=== PATIENT | female | born 1955 | race Caucasian/White ===

== ENCOUNTER 2017-06-03 11:20 | Emergency (ER) | payer OTHER ==
[~2017-06-03] VITALS: Ht 167.6 cm; Wt 41.4 kg
[2017-06-03] MEDS ORDERED: IOHEXOL 350 MG/ML 10 ML VIAL (for RAD DIAG) IVCONTRAST ONE (11:21)
[2017-06-03 11:22] VITALS: BP 104/60; PULSE 84; RESP 18; TEMP 97.7; O2SAT 100
--- NOTE | 2017-06-03 11:53 | PD ---
HPI Chief Complaint: Respiratory Symptoms Time Seen by Provider: 11:41 Travel History International Travel<30 days: No Contact w/Intl Traveler<30days: No Traveled to known affect area: No History of Present Illness HPI Patient 62-year-old female presents emergency department for evaluation of shortness of breath. Patient states she has history of COPD, recently relocated to the area but was told that outside hospital that she had lung cancer diagnosed by imaging studies. She's never had a biopsy before, she states that she is allergic to chemotherapy and cannot take it because she's had it in the past. She could not really elaborate onto her prior diagnoses or the reason why she had chemotherapy in the past. States shortness of breath been going on for the past few days, no long trips recently she relocated to this area several months ago. Denies any chest pain abdominal pain nausea vomiting fever cough congestion. She's been taking nebulizers at home with minimal relief. Symptoms moderate, context above, associated signs symptoms as above, gradually worsening. PFSH Past Medical History Narrative Medical COPD, asthma, Respiratory: Yes (COPD, lung CA) Past Surgical History Narrative Surgical Tonsillectomy Social History Alcohol Use: Yes Tobacco Use: Yes Allergies-Medications (Allergen,Severity, Reaction): Coded Allergies: Penicillins (Verified Allergy, Severe, hives, 06/03/17) Influenza Virus Vaccines (Verified Adverse Reaction, Unknown, vomiting, ) pt report vomiting blood aspirin (Verified Adverse Reaction, Unknown, nauseas/vomiting, 06/03/17) Reported Meds & Prescriptions Reported Meds & Active Scripts Active Proair Hfa 8.5 GM Inh (Albuterol Sulfate) 90 Mcg/Act Aer 1 Puff INH Q4H PRN 108 mcg/actuation Prednisone 20 Mg Tab 60 Mg PO DAILY 5 Days Review of Systems Except as stated in HPI: all other systems reviewed are Neg Physical Exam Narrative GENERAL: Well-developed well-nourished, mildly tachypneic, thin. SKIN: Focused skin assessment warm/dry. HEAD: Atraumatic. Normocephalic. EYES: Pupils equal and round. No scleral icterus. No injection or drainage. ENT: No nasal bleeding or discharge. Mucous membranes pink and moist. NECK: Trachea midline. No JVD. CARDIOVASCULAR: Regular rate and rhythm. No murmur appreciated. RESPIRATORY: Mildly tachypneic, no accessory muscle use.. Clear to auscultation. Breath sounds equal bilaterally. GASTROINTESTINAL: Abdomen soft, non-tender, nondistended. Hepatic and splenic margins not palpable. MUSCULOSKELETAL: No obvious deformities. No clubbing. No cyanosis. No edema. NEUROLOGICAL: Awake and alert. No obvious cranial nerve deficits. Motor grossly within normal limits. Normal speech. PSYCHIATRIC: Appropriate mood and affect; insight and judgment normal. Data Data Last Documented VS Vital Signs Date Time Temp Pulse Resp B/P (MAP) Pulse Ox O2 Delivery O2 Flow Rate FiO2 06/03/17 16:40 97.8 67 18 120/81 (94) 100 06/03/17 14:19 Room Air Orders Orders Ckmb (Isoenzyme) Profile (06/03/17 11:58) Complete Blood Count With Diff (06/03/17 11:58) Comprehensive Metabolic Panel (06/03/17 11:58) Magnesium (Mg) (06/03/17 11:58) Prothrombin Time / Inr (Pt) (06/03/17 11:58) Act Partial Throm Time (Ptt) (06/03/17 11:58) Troponin I (06/03/17 11:58) Chest, Single Ap (06/03/17 11:58) Ecg Monitoring (06/03/17 11:58) Iv Access Insert/Monitor (06/03/17 11:58) Oximetry (06/03/17 11:58) Oxygen Administration (06/03/17 11:58) Ct Pulmonary Angiogram (06/03/17 11:58) Albuterol-Ipratropium Neb (Duoneb Neb) (06/03/17 12:45) Iohexol 350 Inj (Omnipaque 350 Inj) (06/03/17 11:21) Ed Discharge Order (06/03/17 16:18) Labs Laboratory Tests Test 06/03/17 11:10 White Blood Count 5.2 TH/MM3 Red Blood Count 3.86 MIL/MM3 Hemoglobin 12.5 GM/DL Hematocrit 35.8 % Mean Corpuscular Volume 92.8 FL Mean Corpuscular Hemoglobin 32.2 PG Mean Corpuscular Hemoglobin Concent 34.7 % Red Cell Distribution Width 12.7 % Platelet Count 181 TH/MM3 Mean Platelet Volume 8.7 FL Neutrophils (%) (Auto) 38.4 % Lymphocytes (%) (Auto) 51.6 % Monocytes (%) (Auto) 8.0 % Eosinophils (%) (Auto) 1.3 % Basophils (%) (Auto) 0.7 % Neutrophils # (Auto) 2.0 TH/MM3 Lymphocytes # (Auto) 2.7 TH/MM3 Monocytes # (Auto) 0.4 TH/MM3 Eosinophils # (Auto) 0.1 TH/MM3 Basophils # (Auto) 0.0 TH/MM3 CBC Comment AUTO DIFF Differential Comment AUTO DIFF CONFIRMED Prothrombin Time 10.6 SEC Prothromb Time International Ratio 1.0 RATIO Activated Partial Thromboplast Time 25.3 SEC Blood Urea Nitrogen 8 MG/DL Creatinine 0.85 MG/DL Random Glucose 72 MG/DL Total Protein 6.5 GM/DL Albumin 3.3 GM/DL Calcium Level 8.4 MG/DL Magnesium Level 2.1 MG/DL Alkaline Phosphatase 74 U/L Aspartate Amino Transf (AST/SGOT) 9 U/L Alanine Aminotransferase (ALT/SGPT) 17 U/L Total Bilirubin 0.6 MG/DL Sodium Level 141 MEQ/L Potassium Level 3.8 MEQ/L Chloride Level 106 MEQ/L Carbon Dioxide Level 26.0 MEQ/L Anion Gap 9 MEQ/L Estimat Glomerular Filtration Rate 68 ML/MIN Total Creatine Kinase 94 U/L Troponin I LESS THAN 0.02 NG/ML MDM Medical Decision Making Medical Screen Exam Complete: Yes Emergency Medical Condition: Yes Differential Diagnosis PE, COPD, pneumonia, pleural effusion. Narrative Course Patient roomed emergency department, given DuoNeb, feeling better, chest CT performed shows: Last 24 hours Impressions Chest X-Ray 06/03/17 1165 Signed Impressions: Service Date/Time: Saturday, June 03, 2017 12:01 - CONCLUSION: No acute disease. Yaron Riddle MD CT Angiography 06/03/17 1154 Signed Impressions: Service Date/Time: Saturday, June 03, 2017 13:27 - CONCLUSION: 1. No evidence of pulmonary embolism. 2. Underlying emphysema and old granulomatous change. Loi Mukherjee MD Doing well saturating well, no indication for further workup or inpatient management, discussed [facility] care physician, discussed at length that she does have some pulmonary nodules and would do well to have them biopsied in the future. Recommended obtaining her outside records so they can be reviewed by primary care physician for further management of possible lung cancer. Generalized understanding and agreement all the above, she stable for discharge. Diagnosis Primary Impression: COPD exacerbation Additional Impression: Pulmonary nodule Referrals: [facility] Med/Other Pt SpecificInfo: Prescription(s) given Scripts Albuterol 8.5 GM Inh (Proair Hfa 8.5 GM Inh) 90 Mcg/Act Aer 1 PUFF INH Q4H Y for SHORTNESS OF BREATH, #1 INHALER 1 Refill 108 mcg/actuation Prov: Edgar Pepper MD 06/03/17 Prednisone (Prednisone) 20 Mg Tab 60 MG PO DAILY for 5 Days, #15 TAB 0 Refills Prov: Edgar Pepper MD 06/03/17 Disposition: 01 DISCHARGE HOME Condition: Stable Edgar Pepper MD Jun 03, 2017 11:53
[2017-06-03 12:10] VITALS: RESP 20; O2SAT 100
[2017-06-03 12:27] VITALS: BP 108/66; PULSE 58; RESP 20; O2SAT 100
--- NOTE | 2017-06-03 12:37 | RADRPT ---
EXAM DATE/TIME: 06/03/2017 12:01 [facility] COMPARISON: No previous studies available for comparison. INDICATIONS : Chest pains with shortness of breath x2 days. MEDICAL HISTORY : None. SURGICAL HISTORY : None. ENCOUNTER: Initial ACUITY: 2 days PAIN SCORE: 8/10 LOCATION: Bilateral chest FINDINGS: The heart size is normal. The lungs appear somewhat hyperinflated. There is a calcified granuloma at the lateral right base. Lungs are free of focal consolidation. There are symmetric nodule densities p rojecting over the bases bilaterally almost certainly representing nipple shadows. CONCLUSION: No acute disease. Yaron Riddle MD on June 03, 2017 at 12:33 Board Certified Radiologist. This report was verified electronically.
[2017-06-03 12:43] LABS: BASOPHIL % 0.7 % (0.0-2.0); EOSINOPHIL # 0.1 TH/MM3 (0-0.4); EOSINOPHIL % 1.3 % (0.0-4.0); HEMATOCRIT 35.8 % (35.0-46.0); HEMOGLOBIN 12.5 GM/DL (11.6-15.3); LYMPH % 51.6 % (9.0-44.0); LYMPHOCYTE # 2.7 TH/MM3 (1.0-4.8); MEAN CELL VOLUME 92.8 FL (80.0-100.0); MEAN CORPUSCULAR HEMOGLOBIN 32.2 PG (27.0-34.0); MEAN CORPUSCULAR HGB CONC 34.7 % (32.0-36.0); MEAN PLATELET VOLUME 8.7 FL (7.0-11.0); MONOCYTE # 0.4 TH/MM3 (0-0.9); NEUT % 38.4 % (16.0-70.0); PLATELET COUNT 181 TH/MM3 (150-450); RED BLOOD COUNT 3.86 MIL/MM3 (4.00-5.30); RED CELL DISTRIBUTION WIDTH 12.7 % (11.6-17.2); WHITE BLOOD COUNT 5.2 TH/MM3 (4.0-11.0)
[2017-06-03] MEDS ORDERED: RESP: ALBUTEROL 2.5 MG/IPRATROPIUM 0.5 MG NEB (SCH) NEB ONE (12:45)
[2017-06-03 12:58] LABS: PROTHROMBIN TIME - PATIENT 10.6 SEC (9.8-11.6)
[2017-06-03 13:03] LABS: ALBUMIN 3.3 GM/DL (3.4-5.0); AST (GOT) 9 U/L (15-37); BLOOD UREA NITROGEN 8 MG/DL (7-18); CALCIUM 8.4 MG/DL (8.5-10.1); CHLORIDE 106 MEQ/L (98-107); CREATININE 0.85 MG/DL (0.50-1.00); GLOMERULAR FILTRATION RATE 68 ML/MIN (>89); GLUCOSE,RANDOM 72 MG/DL (74-106); MAGNESIUM 2.1 MG/DL (1.5-2.5); SODIUM (NA) 141 MEQ/L (136-145)
[2017-06-03 13:19] LABS: ALKALINE PHOSPHATASE 74 U/L (45-117); ALT (GPT) 17 U/L (10-53); TOTAL BILIRUBIN ADULT 0.6 MG/DL (0.2-1.0); TOTAL PROTEIN 6.5 GM/DL (6.4-8.2); TROPONIN I LESS THAN 0.02 NG/ML (0.02-0.05)
--- NOTE | 2017-06-03 13:47 | RADRPT ---
EXAM DATE/TIME: 06/03/2017 13:27 [facility] COMPARISON: CHEST SINGLE AP, June 03, 2017, 12:01. INDICATIONS : Shortness of breath for three days IV CONTRAST: 50 cc Omnipaque 350 (iohexol) IV RADIATION DOSE: 5.34 CTDIvol (mGy) MEDICAL HISTORY : Chronic obstructive pulmonary disease. Carcinoma, lung. SURGICAL HISTORY : None. ENCOUNTER: Initial ACUITY: 3 days PAIN SCALE: 8/10 LOCATION: chest TECHNIQUE: Volumetric scanning of the chest was performed using a pulmonary embolism protocol MIP images were re constructed. Using automated exposure control and adjustment of the mA and/or kV according to patien t size, radiation dose was kept as low as reasonably achievable to obtain optimal diagnostic quality images. DICOM format image data is available electronically for review and comparison. Follow-up recommendations for detected pulmonary nodules are based at a minimum on nodule size and pa tient risk factors according to Fleischner Society Guidelines. FINDINGS: PULMONARY ARTERIES: No filling defects are seen in the pulmonary arteries through the segmental level. A densely calcifie d granuloma is again noted in the right lower lobe. There are multiple additional small scattered [place] cified granulomas. There is hyperinflation and underlying emphysema. LUNGS: There is no consolidation or pneumothorax . No concerning pulmonary nodule is visualized. PLEURAE: There is no pleural thickening or pleural effusion. MEDIASTINUM: There is good visualization of the great vessels of the middle mediastinum. No evidence of mediastin al or hilar adenopathy/mass. MUSCULOSKELETAL: Within normal limits for patient age. MISCELLANEOUS: The visualized upper abdominal organs demonstrate no acute abnormality. CONCLUSION: 1. No evidence of pulmonary embolism. 2. Underlying emphysema and old granulomatous change. Loi Mukherjee MD on June 03, 2017 at 13:40 Board Certified Radiologist. This report was verified electronically.
[2017-06-03 14:19] VITALS: BP 125/75; PULSE 62; RESP 18; TEMP 98; O2SAT 100
[2017-06-03] MEDS ORDERED: PRED20 PO (16:20)
[2017-06-03] MEDS ORDERED: ALBUAER3 INH (16:20)
[2017-06-03 16:40] VITALS: BP 120/81; TEMP 97.8
== END 2017-06-03 16:40 | disposition home or self-care (01) ==
LOC: NEPE 11:20
DX: J44.1 Chronic obstructive pulmonary disease with (acute) exacerbation (principal); R91.1 Solitary pulmonary nodule; C34.90 Malignant neoplasm of unspecified part of unspecified bronchus or lung; Z88.0 Allergy status to penicillin; Z88.8 Allergy status to other drugs, medicaments and biological substances
CPT/HCPCS: 71045; 71275; 80053; 82550; 83735; 84484; 85025; 85610; 85730; 94664; 99285; Q9967

== ENCOUNTER 2017-06-09 16:59 | Observation (INO) | payer OTHER ==
[~2017-06-09] VITALS: Ht 167.6 cm; Wt 40.0 kg
[~2017-06-09 16:59] MED LIST: ALBUAER3 INH; PRED20 PO
[2017-06-09 17:06] VITALS: BP 110/65; PULSE 80; RESP 17; TEMP 98.3; O2SAT 99
--- NOTE | 2017-06-09 17:24 | PD ---
HPI Chief Complaint: Syncope/Near-Syncope Time Seen by Provider: 17:08 Travel History International Travel<30 days: No Contact w/Intl Traveler<30days: No Traveled to known affect area: No History of Present Illness HPI 62-year-old female with reported history of COPD presents via EMS for evaluation of syncopal event. Prior to arrival the patient reports that she was walking inside of her house when she felt lightheaded. She reports that she called out for her fianc but she then had a syncopal event and woke up on the ground. She reports that her fianc witnessed this and she was on the ground for approximately 1 minute. There is no seizure activity. She is currently complaining of some lightheadedness as well as nausea. She is also complaining of some sharp chest pain which is started a few seconds ago. Sharp centralized chest pain with no aggravating or relieving factors. Lightheadedness is moderate, no aggravating or relieving factors. She reports that she had similar lightheadedness yesterday for several minutes which resolved on its own. Denies any history of syncope in the past. Denies any abdominal pain, diarrhea or constipation. She reports that she has had a normal healthy appetite. She does not have a primary care physician. She was seen here in June 02 of this year and diagnosed with COPD exacerbation. She had a negative CT pulmonary angiogram at that time and reassuring lab work. She was discharged with prescriptions for prednisone and albuterol inhaler however she never filled them. No other complaints at this time. PFSH Past Medical History Asthma: Yes Cardiovascular Problems: Yes (chest pain hx) COPD: Yes Cerebrovascular Accident: Yes Diminished Hearing: No Respiratory: Yes (COPD) Influenza Vaccination: No ?: Not Menopausal: Yes : 1 Para: 1 Past Surgical History Abdominal Surgery: Yes Appendectomy: Yes Tonsillectomy: Yes Social History Alcohol Use: No Tobacco Use: Yes (2 PPD) Substance Use: No Allergies-Medications (Allergen,Severity, Reaction): Coded Allergies: Penicillins (Verified Allergy, Severe, hives, 06/09/17) Influenza Virus Vaccines (Verified Adverse Reaction, Unknown, vomiting, 06/09/17) pt report vomiting blood aspirin (Verified Adverse Reaction, Unknown, nauseas/vomiting, 06/09/17) Reported Meds & Prescriptions Reported Meds & Active Scripts Active Proair Hfa 8.5 GM Inh (Albuterol Sulfate) 90 Mcg/Act Aer 1 Puff INH Q4H PRN 108 mcg/actuation Prednisone 20 Mg Tab 60 Mg PO DAILY 5 Days Review of Systems Except as stated in HPI: all other systems reviewed are Neg Physical Exam Narrative GENERAL: Thin female who appears older than stated age in no acute distress. SKIN: Warm and dry. HEAD: Atraumatic. Normocephalic. EYES: Pupils equal and round. No scleral icterus. No injection or drainage. ENT: No nasal bleeding or discharge. Mucous membranes pink and moist. NECK: Trachea midline. No JVD. CARDIOVASCULAR: Regular rate and rhythm. No murmur appreciated. RESPIRATORY: No accessory muscle use. Clear to auscultation. Breath sounds equal bilaterally. GASTROINTESTINAL: Abdomen soft, non-tender, nondistended. Hepatic and splenic margins not palpable. MUSCULOSKELETAL: No obvious deformities. No clubbing. No cyanosis. No edema. NEUROLOGICAL: Awake and alert. No obvious cranial nerve deficits. Motor grossly within normal limits. Normal speech. PSYCHIATRIC: Appropriate mood and affect; insight and judgment normal. Data Data Last Documented VS Vital Signs Date Time Temp Pulse Resp B/P (MAP) Pulse Ox O2 Delivery O2 Flow Rate FiO2 06/09/17 19:05 61 17 100 Room Air 06/09/17 19:05 110/68 (82) 06/09/17 17:06 98.3 Orders Orders Electrocardiogram (06/09/17 17:19) Basic Metabolic Panel (Bmp) (06/09/17 17:19) Complete Blood Count With Diff (06/09/17 17:19) Magnesium (Mg) (06/09/17 17:19) Ckmb (Isoenzyme) Profile (06/09/17 17:19) Troponin I (06/09/17 17:19) Ct Brain W/O Iv Contrast(Rout) (06/09/17 17:19) Blood Glucose (06/09/17 17:19) Ecg Monitoring (06/09/17 17:19) Iv Access Insert/Monitor (06/09/17 17:19) Oximetry (06/09/17 17:19) Ondansetron Inj (Zofran Inj) (06/09/17 17:30) Sodium Chloride 0.9% Flush (Ns Flush) (06/09/17 17:30) Sodium Chlorid 0.9% 500 Ml Inj (Ns 500 M (06/09/17 17:30) Chest, Single Ap (06/09/17 ) CKMB (06/09/17 17:25) CKMB% (06/09/17 17:25) Potassium Chloride (Kcl) (06/09/17 18:30) Admit Order (Ed Use Only) (06/09/17 19:09) Labs Laboratory Tests Test 06/09/17 17:25 White Blood Count 5.7 TH/MM3 Red Blood Count 3.74 MIL/MM3 Hemoglobin 12.0 GM/DL Hematocrit 34.6 % Mean Corpuscular Volume 92.6 FL Mean Corpuscular Hemoglobin 32.0 PG Mean Corpuscular Hemoglobin Concent 34.6 % Red Cell Distribution Width 12.8 % Platelet Count 169 TH/MM3 Mean Platelet Volume 9.6 FL Neutrophils (%) (Auto) 55.1 % Lymphocytes (%) (Auto) 34.6 % Monocytes (%) (Auto) 9.1 % Eosinophils (%) (Auto) 0.6 % Basophils (%) (Auto) 0.6 % Neutrophils # (Auto) 3.2 TH/MM3 Lymphocytes # (Auto) 2.0 TH/MM3 Monocytes # (Auto) 0.5 TH/MM3 Eosinophils # (Auto) 0.0 TH/MM3 Basophils # (Auto) 0.0 TH/MM3 CBC Comment DIFF FINAL Differential Comment Blood Urea Nitrogen 12 MG/DL Creatinine 0.85 MG/DL Random Glucose 133 MG/DL Calcium Level 7.9 MG/DL Magnesium Level 1.8 MG/DL Sodium Level 137 MEQ/L Potassium Level 3.4 MEQ/L Chloride Level 105 MEQ/L Carbon Dioxide Level 23.8 MEQ/L Anion Gap 8 MEQ/L Estimat Glomerular Filtration Rate 68 ML/MIN Total Creatine Kinase 270 U/L Creatine Kinase MB 2.0 NG/ML Creatine Kinase MB % 0.7 % Troponin I LESS THAN 0.02 NG/ML MDM Medical Decision Making Medical Screen Exam Complete: Yes Emergency Medical Condition: Yes Medical Record Reviewed: Yes Differential Diagnosis Syncope, arrhythmia, structural heart disease, electrolyte abnormality, hypoglycemia, critical anemia, subarachnoid hemorrhage, acute coronary syndrome , aortic dissection, pulmonary embolism Narrative Course The patient was placed on ECG monitoring pulse oximetry. 12-lead EKG will be obtained. Plan is for lab work, chest x-ray, CT the brain. Reassuringly the patient had a negative CT pulmonary angiogram 6 days ago with no evidence of pulmonary embolism. CBC is unremarkable. CMP reveals a potassium 3.4, glucose 133, calcium 7.9, total CK 270, troponin negative, chest x-ray unremarkable. At this point in time the plan is to admit the patient for chest pain, syncope. She is agreeable. Diagnosis Primary Impression: Syncope Additional Impression: Chest pain Admitting Information Admitting Physician Requests: Dayton Christianson Jun 09, 2017 17:24
[2017-06-09] MEDS ORDERED: ONDANSETRON HCL 4 MG/2 ML VIAL IVP ONE (17:30)
[2017-06-09] MEDS ORDERED: SODIUM CHLORID 0.9% 500 ML INJ 500 ML IV ONE (17:30)
[2017-06-09] MEDS ORDERED: SODIUM CHLORIDE 0.9% FLUSH 10 ML FLUSH IVF PRN (17:30)
[2017-06-09 17:32] VITALS: O2SAT 98
[2017-06-09 17:43] LABS: AUTOMATED NEUTROPHIL # 3.2 TH/MM3 (1.8-7.7); BASOPHIL % 0.6 % (0.0-2.0); EOSINOPHIL % 0.6 % (0.0-4.0); HEMATOCRIT 34.6 % (35.0-46.0); LYMPH % 34.6 % (9.0-44.0); MEAN CELL VOLUME 92.6 FL (80.0-100.0); MEAN CORPUSCULAR HGB CONC 34.6 % (32.0-36.0); MEAN PLATELET VOLUME 9.6 FL (7.0-11.0); MONO % 9.1 % (0.0-8.0); MONOCYTE # 0.5 TH/MM3 (0-0.9); NEUT % 55.1 % (16.0-70.0); PLATELET COUNT 169 TH/MM3 (150-450); RED BLOOD COUNT 3.74 MIL/MM3 (4.00-5.30); RED CELL DISTRIBUTION WIDTH 12.8 % (11.6-17.2); WHITE BLOOD COUNT 5.7 TH/MM3 (4.0-11.0)
[2017-06-09 17:57] LABS: BICARBONATE 23.8 MEQ/L (21.0-32.0); BLOOD UREA NITROGEN 12 MG/DL (7-18); CALCIUM 7.9 MG/DL (8.5-10.1); CHLORIDE 105 MEQ/L (98-107); CREATININE 0.85 MG/DL (0.50-1.00); GLOMERULAR FILTRATION RATE 68 ML/MIN (>89); GLUCOSE,RANDOM 133 MG/DL (74-106); MAGNESIUM 1.8 MG/DL (1.5-2.5); SODIUM (NA) 137 MEQ/L (136-145)
[2017-06-09 18:00] LABS: TROPONIN I LESS THAN 0.02 NG/ML (0.02-0.05)
[2017-06-09] MEDS ORDERED: POTASSIUM CHLORIDE 20 MEQ CONTROLLED RELEASE TAB PO ONE (18:30)
--- NOTE | 2017-06-09 18:43 | RADRPT ---
EXAM DATE/TIME: 06/09/2017 18:21 [facility] COMPARISON: CT PULMONARY ANGIOGRAM, June 03, 2017, 13:27. CHEST SINGLE AP, June 03, 2017, 12:01. INDICATIONS : Chest Pain MEDICAL HISTORY : Chronic obstructive pulmonary disease. Carcinoma, lung. SURGICAL HISTORY : None. ENCOUNTER: Initial ACUITY: 1 day PAIN SCORE: 8/10 LOCATION: chest FINDINGS: The lungs are clear without infiltrate, nodule, or mass. There is no appreciable pleural effusion fo r technique. Heart and mediastinum are unremarkable. Evidence for prior granulomatous exposure with a calcified granuloma right lower lobe. CONCLUSION: No acute cardiopulmonary disease. Roxana Dodge MD on June 09, 2017 at 18:41 Board Certified Radiologist. This report was verified electronically.
[2017-06-09 19:05] VITALS: BP 110/68; PULSE 60; RESP 17; O2SAT 100
[2017-06-09] MEDS ORDERED: SENNOSIDES 8.6 MG TAB PO PRN (19:15)
[2017-06-09] MEDS ORDERED: RESP: ALBUTEROL 2.5 MG/IPRATROPIUM 0.5 MG NEB (PRN) NEB (19:15)
[2017-06-09] MEDS ORDERED: SODIUM CHLORIDE 0.9% FLUSH 10 ML FLUSH IV FLUSH PRN (19:15)
[2017-06-09] MEDS ORDERED: BISACODYL 10 MG SUPP RECTAL PRN (19:15)
[2017-06-09] MEDS ORDERED: ONDANSETRON HCL 4 MG/2 ML VIAL IVP PRN (19:15)
[2017-06-09] MEDS ORDERED: MAGNESIUM HYDROXIDE SUSP 30 ML CUP PO PRN (19:15)
[2017-06-09] MEDS ORDERED: ACETAMINOPHEN/HYDROcodone 325 MG/5 MG TAB PO PRN (19:15)
[2017-06-09] MEDS ORDERED: ACETAMINOPHEN 325 MG TAB PO PRN (19:15)
[2017-06-09] MEDS ORDERED: MORPHINE SULFATE 2 MG/ML INJ IV PUSH PRN (19:15)
[2017-06-09] MEDS ORDERED: LACTULOSE SYRUP 20 GM/30 ML CUP PO PRN (19:15)
--- NOTE | 2017-06-09 19:15 | PD ---
Physical Exam Narrative General: The patient is a well-developed well-nourished female, drinking Gatorade and having gram crackers on my arrival to the room. She reports feeling improved since her initial evaluation by [place]. Head and Neck exam: Head is normocephalic atraumatic. Cardiovascular: Regular rate and rhythm without murmurs, gallops, or rubs. Lungs: Clear to auscultation bilaterally. No wheezes, rhonchi, or rales. Abdomen: Soft, without tenderness to palpation in all 4 quadrants of the abdomen. No guarding, rebound, or rigidity. Normal bowel sounds are audible. No tenderness on palpation of McBurney's point. Extremities: No clubbing, cyanosis, or edema. 2+ pulses in all 4 extremities. No calf tenderness on palpation. Neurologic Exam: Grossly nonfocal. Skin Exam: No rash noted. Intact skin that is warm and dry. Data Data Last Documented VS Vital Signs Date Time Temp Pulse Resp B/P (MAP) Pulse Ox O2 Delivery O2 Flow Rate FiO2 06/09/17 19:05 61 17 100 Room Air 06/09/17 19:05 110/68 (82) 06/09/17 17:06 98.3 Orders Orders Electrocardiogram (06/09/17 17:19) Basic Metabolic Panel (Bmp) (06/09/17 17:19) Complete Blood Count With Diff (06/09/17 17:19) Magnesium (Mg) (06/09/17 17:19) Ckmb (Isoenzyme) Profile (06/09/17 17:19) Troponin I (06/09/17 17:19) Ct Brain W/O Iv Contrast(Rout) (06/09/17 17:19) Blood Glucose (06/09/17 17:19) Ecg Monitoring (06/09/17 17:19) Iv Access Insert/Monitor (06/09/17 17:19) Oximetry (06/09/17 17:19) Ondansetron Inj (Zofran Inj) (06/09/17 17:30) Sodium Chloride 0.9% Flush (Ns Flush) (06/09/17 17:30) Sodium Chlorid 0.9% 500 Ml Inj (Ns 500 M (06/09/17 17:30) Chest, Single Ap (06/09/17 ) CKMB (06/09/17 17:25) CKMB% (06/09/17 17:25) Potassium Chloride (Kcl) (06/09/17 18:30) Admit Order (Ed Use Only) (06/09/17 19:09) Labs Laboratory Tests Test 06/09/17 17:25 White Blood Count 5.7 TH/MM3 Red Blood Count 3.74 MIL/MM3 Hemoglobin 12.0 GM/DL Hematocrit 34.6 % Mean Corpuscular Volume 92.6 FL Mean Corpuscular Hemoglobin 32.0 PG Mean Corpuscular Hemoglobin Concent 34.6 % Red Cell Distribution Width 12.8 % Platelet Count 169 TH/MM3 Mean Platelet Volume 9.6 FL Neutrophils (%) (Auto) 55.1 % Lymphocytes (%) (Auto) 34.6 % Monocytes (%) (Auto) 9.1 % Eosinophils (%) (Auto) 0.6 % Basophils (%) (Auto) 0.6 % Neutrophils # (Auto) 3.2 TH/MM3 Lymphocytes # (Auto) 2.0 TH/MM3 Monocytes # (Auto) 0.5 TH/MM3 Eosinophils # (Auto) 0.0 TH/MM3 Basophils # (Auto) 0.0 TH/MM3 CBC Comment DIFF FINAL Differential Comment Blood Urea Nitrogen 12 MG/DL Creatinine 0.85 MG/DL Random Glucose 133 MG/DL Calcium Level 7.9 MG/DL Magnesium Level 1.8 MG/DL Sodium Level 137 MEQ/L Potassium Level 3.4 MEQ/L Chloride Level 105 MEQ/L Carbon Dioxide Level 23.8 MEQ/L Anion Gap 8 MEQ/L Estimat Glomerular Filtration Rate 68 ML/MIN Total Creatine Kinase 270 U/L Creatine Kinase MB 2.0 NG/ML Creatine Kinase MB % 0.7 % Troponin I LESS THAN 0.02 NG/ML [facility] Medical Record Reviewed: Yes Supervised Visit with JESSENIA: Yes Narrative Course I, Dr. Chávez, have reviewed the advance practice practitioner's documentation and am in agreement, met with the patient face to face, made the diagnosis, and the medical decision making was done by me. The patient was initially evaluated by [place]. Please see their complete history and physical. *My assessment and Findings: The patient presents with a history of syncopal event prior to arrival. During the course of the patients emergency department visit, the patients history, examination, and differential diagnosis were reviewed with the patient. The patient was placed on a cardiac cath tech with oximetry and frequent blood pressure monitoring. The patient had IV access obtained and blood work sent for analysis. The patient was initially provided normal saline a 500 mL bolus, Zofran 4 mg IV , potassium was supplemented by mouth. The patients laboratory studies were reviewed and remarkable for a white count of 5.7, hemoglobin 12, platelets 169 with 9.1 monocytes, basic metabolic profile is remarkable for potassium 3.4, GFR of 68, glucose 133, CPK 270, MB percent 0.7, troponin I less than 0.02 Radiology studies were reviewed and remarkable for a chest x-ray that shows no acute cardiopulmonary disease. CT scan of the brain shows no acute abnormality. The patient will be admitted to the hospital for a syncopal event The patients results were discussed with the patient, including the plan of care. I explained that further testing and/ or monitoring is indicated based on the patients history, examination, and/ or laboratory findings. Therefore, I recommended admission for additional evaluation. The patient expressed understanding and was agreeable with this plan. The patient was admitted to the hospital in stable condition and [facility] Diagnosis Primary Impression: Syncope Additional Impression: Chest pain Admitting Information Admitting Physician Requests: Observation Mariella Chávez MD Jun 09, 2017 19:15
--- NOTE | 2017-06-09 19:17 | RADRPT ---
EXAM DATE/TIME: 06/09/2017 17:59 [facility] COMPARISON: No previous studies available for comparison. INDICATIONS : Syncopal episode. RADIATION DOSE: 56.35CTDIvol (mGy) MEDICAL HISTORY : Cerebrovascular disease. Cardiovascular disease SURGICAL HISTORY : Appendectomy. ENCOUNTER: Initial ACUITY: 1 day PAIN SCALE: 5/10 LOCATION: cranial TECHNIQUE: Multiple contiguous axial images were obtained of the head. Using automated exposure control and adjustment of the mA and/or kV according to patient size, radiation dose was kept as low as reasonably achievable to obtain optimal diagnostic quality images. DICOM format image data is av ailable electronically for review and comparison. FINDINGS: There is no evidence for intracranial hemorrhage, mass effect, mass lesions, edema, or extra-axial fl uid collections. The visualized bony structures appear intact. The ventricles are normal size for t he patient's age. There are no signs of acute infarction for technique. CONCLUSION: Unremarkable study. Roxana Dodge MD on June 09, 2017 at 19:13 Board Certified Radiologist. This report was verified electronically.
--- NOTE | 2017-06-09 19:18 | HHI.HP ---
[facility] No Primary Care Physician Admission Diagnosis syncope, chest pain Diagnoses: (1) Syncope Diagnosis: Principal (2) Chest pain Diagnosis: Principal (3) COPD (chronic obstructive pulmonary disease) Diagnosis: Principal (4) Hypokalemia Diagnosis: Principal (5) Dehydration Diagnosis: Principal (6) Rhabdomyolysis Diagnosis: Principal (7) Tobacco abuse Diagnosis: Principal Travel History International Travel<30 Days: No Contact w/Intl Traveler <30 Da: No Traveled to Known Affected Are: No History of Present Illness This is a 62-year-old female with a PMH of COPD and Tobacco Abuse was brought to the ER by EMS secondary to syncopal event. Per patient, she had gone outside to smoke a cigarette, when she walked back into the house she had episode of dizzinees/lightheadedness w/ nausea/vomiting followed by syncopal event. Reports no head trauma. Believes episode lasted approx 1-2 min. Denies h/o similar symptoms. En route to ER, pt w/ c/o chest pain. States pain is substernal, worse w/ inspiration, severe, 8/10, associated w/ SOB and wheezing. Recent ER visit 06/03/17 for COPD, d/c'd home w/ Prednisone and Albuterol however states she has not filled prescriptions yet. Denies fever or chills. Reports productive cough w/ white-colored sputum. On arrival, BP 110/ 65, HR 80, O2 sat 99% on RA, Afebrile. CBC essentially unremarkable. K+ 3.4. GFR 68. CPK 270. Troponin negative. CXR with no acute findings. CT Head negative. Review of Systems Except as stated in HPI: all other systems reviewed are Neg ROS: 14 point review of systems otherwise negative. Past Family Social History Past Medical History PMH: COPD and Tobacco Abuse Past Surgical History PAST SURGICAL HISTORY: Appendectomy, Tonsillectomy Allergies: Coded Allergies: Penicillins (Verified Allergy, Severe, hives, 06/09/17) Influenza Virus Vaccines (Verified Adverse Reaction, Unknown, vomiting, 2/ 4/18) pt report vomiting blood aspirin (Verified Adverse Reaction, Unknown, nauseas/vomiting, 06/09/17) Family History PAST FAMILY HISTORY: Reviewed. No h/o DM or CAD Social History PAST SOCIAL HISTORY: Negative for alcohol or drugs. Smokes 1/2ppd. Physical Exam Vital Signs Vital Signs Date Time Temp Pulse Resp B/P (MAP) Pulse Ox O2 Delivery O2 Flow Rate FiO2 06/09/17 19:05 61 17 100 Room Air 06/09/17 19:05 60 17 110/68 (82) 100 Room Air 06/09/17 17:32 98 Room Air 06/09/17 17:12 70 20 100 Room Air 06/09/17 17:06 98.3 80 17 110/65 (80) 99 Physical Exam PE: GENERAL: Thin, middle-aged white female in no acute distress. HEENT: PERRLA, EOMI. No scleral icterus or conjunctival pallor. No lid lag or facial droop. CARDIOVASCULAR: Regular rate and rhythm. No obvious murmurs to auscultation. No chest tenderness to palpation. RESPIRATORY: No obvious rhonchi, occasional wheezing. Clear to auscultation. Breath sounds equal bilaterally. GASTROINTESTINAL: Abdomen soft, non-tender, nondistended. BS normal. MUSCULOSKELETAL: Extremities without clubbing, cyanosis, or edema. No obvious deformities. NEUROLOGICAL: Awake, alert and oriented x4. No focal neurologic deficits. Moving both upper and lower extremities spontaneously. Laboratory Laboratory Tests Test 06/09/17 17:25 White Blood Count 5.7 Red Blood Count 3.74 Hemoglobin 12.0 Hematocrit 34.6 Mean Corpuscular Volume 92.6 Mean Corpuscular Hemoglobin 32.0 Mean Corpuscular Hemoglobin Concent 34.6 Red Cell Distribution Width 12.8 Platelet Count 169 Mean Platelet Volume 9.6 Neutrophils (%) (Auto) 55.1 Lymphocytes (%) (Auto) 34.6 Monocytes (%) (Auto) 9.1 Eosinophils (%) (Auto) 0.6 Basophils (%) (Auto) 0.6 Neutrophils # (Auto) 3.2 Lymphocytes # (Auto) 2.0 Monocytes # (Auto) 0.5 Eosinophils # (Auto) 0.0 Basophils # (Auto) 0.0 CBC Comment DIFF FINAL Differential Comment Blood Urea Nitrogen 12 Creatinine 0.85 Random Glucose 133 Calcium Level 7.9 Magnesium Level 1.8 Sodium Level 137 Potassium Level 3.4 Chloride Level 105 Carbon Dioxide Level 23.8 Anion Gap 8 Estimat Glomerular Filtration Rate 68 Total Creatine Kinase 270 Creatine Kinase MB 2.0 Creatine Kinase MB % 0.7 Troponin I LESS THAN 0.02 Result Diagram: 06/09/17172406/09/171724 [facility] VTE Risk Assessment Caprin VTE Risk Assessment: No/Low Risk (score <= 1) Caprini Risk Assessment Model Point Value = 1 Point Value = 2 Point Value = 3 Point Value = 5 Age 41-60 Minor surgery BMI > 25 kg/m2 Swollen legs Varicose veins or History of unexplained or recurrent spontaneous Oral contraceptives or hormone replacement Sepsis (< 1 month) Serious lung disease, including pneumonia (< 1 month) Abnormal pulmonary function Acute myocardial infarction Congestive heart failure (< 1 month) History of inflammatory bowel disease Medical patient at bed rest Age 61-74 Arthroscopic surgery Major open surgery (> 45 min) Laparoscopic surgery (> 45 min) Malignancy Confined to bed (> 72 hours) Immobilizing plaster cast Central venous access Age >= 75 History of VTE Family history of VTE Factor V Leiden Prothrombin [id number] Lupus anticoagulant Anticardiolipin antibodies Elevated serum homocysteine Heparin-induced thrombocytopenia Other congenital or acquired thrombophilia Stroke (< 1 month) Elective arthroplasty Hip, pelvis, or leg fracture Acute spinal cord injury (< 1 month) Prophylaxis Regimen Total Risk Factor Score Risk Level Prophylaxis Regimen 0-1 Low Early ambulation 2 Moderate Order ONE of the following: *Sequential Compression Device (SCD) *Heparin 5000 units SQ BID 3-4 Higher Order ONE of the following medications: *Heparin 5000 units SQ TID *Enoxaparin/Lovenox 40 mg SQ daily (WT < 150 kg, CrCl > 30 mL/min) *Enoxaparin/Lovenox 30 mg SQ daily (WT < 150 kg, CrCl > 10-29 mL/min) *Enoxaparin/Lovenox 30 mg SQ BID (WT < 150 kg, CrCl > 30 mL/min) AND/OR *Sequential Compression Device (SCD) 5 or more Highest Order ONE of the following medications: *Heparin 5000 units SQ TID (Preferred with Epidurals) *Enoxaparin/Lovenox 40 mg SQ daily (WT < 150 kg, CrCl > 30 mL/min) *Enoxaparin/Lovenox 30 mg SQ daily (WT < 150 kg, CrCl > 10-29 mL/min) *Enoxaparin/Lovenox 30 mg SQ BID (WT < 150 kg, CrCl > 30 mL/min) AND *Sequential Compression Device (SCD) Assessment and Plan Problem List: (1) Syncope ICD Code: R55 - Syncope and collapse Status: Acute (2) Chest pain ICD Code: R07.9 - Chest pain, unspecified Status: Acute (3) COPD (chronic obstructive pulmonary disease) ICD Code: J44.9 - Chronic obstructive pulmonary disease, unspecified (4) Dehydration ICD Code: E86.0 - Dehydration (5) Hypokalemia ICD Code: E87.6 - Hypokalemia (6) Rhabdomyolysis ICD Code: M62.82 - Rhabdomyolysis (7) Tobacco abuse ICD Code: Z72.0 - Tobacco use Assessment and Plan A/P: 1. Syncope: acute syncopal event at home, preceded by lightheadedness/ dizziness and nausea/vomiting, likely related to vasovagal event. CT Head w/ no acute findings, images reviewed by me. Admit for observation, place on telemetry, check Echo to eval for valvular abnormality/cardiomyopathy. Check U/ a to eval for possible UTI. IVF for hydration. 2. Chest Pain: R/o ACS. Initial trop negative, check serial cardiac enzymes for trend. Check lipid profile, Start Pravastatin, ALLERGY to ASA, hold B- linda in light of low-normal BP. NTG/Morphine prn. 3. COPD: Chronic Respiratory Failure w/ Acute Exacerbation. Seen in ER for same, non-compliant w/ meds. +wheezing/SOB w/ productive cough. Solu- Medrol, Symbicort, DuoNeb. CXR w/ no acute findings, images reviewed by me. 4. Dehydration: GFR 68. Check UA to eval for underlying UTI. IVF for hydration. Repeat labs in a.m. 5. Rhabdomyolysis: Mild. CPK 270. Check UA as above, repeat CPK for trend, IVF for hydration. 6. Hypokalemia: K+ 3.4, s/p replacement in ER, will repeat labs in am, replace as needed. 7. Tobacco Abuse: Pt counselled. Ativan prn if needed. No NicoDerm to avoid vasoconstriction. 8. DVT Prophylaxis: SCD/Teds. 9. Social work for d/c planning as needed. 10. Case discussed w/ ER physician at length, labs/records/imaging reviewed by me. Maite Claros MD Jun 09, 2017 19:18
[2017-06-09] MEDS ORDERED: ASPIRIN 81 MG CHEW TAB CHEW ONE (19:30)
[2017-06-09] MEDS ORDERED: ONDANSETRON HCL 4 MG/2 ML VIAL IV PUSH ONE (19:30)
[2017-06-09] MEDS: SODIUM CHLOR 0.9% 1000 ML INJ 1,000 ML IV SCH (19:31)
[2017-06-09 20:00] VITALS: O2SAT 99
[2017-06-09 20:38] VITALS: BP 94/59; PULSE 74; RESP 16; TEMP 98; O2SAT 100
[2017-06-09] MEDS: BUDESONIDE-FORMOTEROL 160/4.5 MCG INHALER INH SCH (21:00)
[2017-06-09] MEDS: SODIUM CHLORIDE 0.9% FLUSH 10 ML FLUSH IV FLUSH SCH (21:00)
[2017-06-09] MEDS: DOCUSATE SODIUM 50 MG/SENNA 8.6 MG TAB PO SCH (21:00)
[2017-06-10] VITALS (9 sets, daily range): BP systolic 84–112; BP diastolic 50–65; PULSE 51–75; RESP 16–21; TEMP 97.7–98.9; O2SAT 95–100
[2017-06-10] MEDS: methylPREDNISolone SOD SUCC 40 MG/1 ML VIAL IV PUSH SCH ×2 (00:24→05:31)
[2017-06-10] MEDS ORDERED: SODIUM CHLOR 0.9% 1000 ML INJ 1,000 ML IV ONE ×2 (01:45→18:15)
[2017-06-10 04:35] LABS: AUTOMATED NEUTROPHIL # 4.2 TH/MM3 (1.8-7.7); BASOPHIL % 0.8 % (0.0-2.0); EOSINOPHIL % 0.5 % (0.0-4.0); HEMATOCRIT 35.6 % (35.0-46.0); HEMOGLOBIN 12.1 GM/DL (11.6-15.3); LYMPH % 18.8 % (9.0-44.0); MEAN CELL VOLUME 92.9 FL (80.0-100.0); MEAN CORPUSCULAR HEMOGLOBIN 31.5 PG (27.0-34.0); MEAN CORPUSCULAR HGB CONC 33.9 % (32.0-36.0); MEAN PLATELET VOLUME 9.7 FL (7.0-11.0); MONO % 4.2 % (0.0-8.0); MONOCYTE # 0.2 TH/MM3 (0-0.9); NEUT % 75.7 % (16.0-70.0); PLATELET COUNT 155 TH/MM3 (150-450); RED BLOOD COUNT 3.83 MIL/MM3 (4.00-5.30); RED CELL DISTRIBUTION WIDTH 12.7 % (11.6-17.2); WHITE BLOOD COUNT 5.5 TH/MM3 (4.0-11.0)
[2017-06-10 04:58] LABS: ALBUMIN 2.9 GM/DL (3.4-5.0); ALT (GPT) 17 U/L (10-53); AST (GOT) 21 U/L (15-37); BICARBONATE 25.7 MEQ/L (21.0-32.0); BLOOD UREA NITROGEN 11 MG/DL (7-18); CALCIUM 7.6 MG/DL (8.5-10.1); CHLORIDE 108 MEQ/L (98-107); CHOLESTEROL 137 MG/DL (120-200); CREATININE 0.78 MG/DL (0.50-1.00); GLOMERULAR FILTRATION RATE 75 ML/MIN (>89); GLUCOSE,RANDOM 99 MG/DL (74-106); SODIUM (NA) 141 MEQ/L (136-145); TRIGLYCERIDES 55 MG/DL (42-150)
[2017-06-10 05:02] LABS: ALKALINE PHOSPHATASE 79 U/L (45-117); CHOLESTEROL/ HDL RATIO 2.89 RATIO; HDL CHOLESTEROL 47.4 MG/DL (40.0-60.0); LDL CHOLESTEROL 79 MG/DL (0-99); TOTAL BILIRUBIN ADULT 0.4 MG/DL (0.2-1.0); TOTAL PROTEIN 5.7 GM/DL (6.4-8.2); TROPONIN I LESS THAN 0.02 NG/ML (0.02-0.05)
[2017-06-10] MEDS: SODIUM CHLOR 0.9% 1000 ML INJ 1,000 ML IV SCH ×2 (05:32→16:34)
--- NOTE | 2017-06-10 09:47 | HHI.PR ---
Subjective Remarks Follow-up up for syncope Patient stated that she was walking to the bathroom and also she blacked out. She stated that her boyfriend was there. He did not witness any seizure activity. Patient denies any chest pain, palpitation, shortness of breathing for the symptoms where she did stated that she felt lightheadedness. After she woke up she stated she started experiencing chest pain only with movements. She stated that she is unsure how she fell and unsure if she hit her chest. Patient denies any shortness of breathing. She denies any URI symptoms. Objective Vitals Vital Signs Date Time Temp Pulse Resp B/P (MAP) Pulse Ox O2 Delivery O2 Flow Rate FiO2 06/10/17 08:06 98.0 51 21 108/62 (77) 100 06/10/17 03:20 90/55 (67) 06/10/17 00:46 98.4 72 17 84/51 (62) 96 06/09/17 20:42 06/09/17 20:38 98.0 74 16 94/59 (71) 100 06/09/17 20:00 99 06/09/17 19:05 61 17 100 Room Air 06/09/17 19:05 60 17 110/68 (82) 100 Room Air 06/09/17 17:32 98 Room Air 06/09/17 17:12 70 20 100 Room Air 06/09/17 17:06 98.3 80 17 110/65 (80) 99 I/O 06/09/17 06/09/17 06/09/17 06/10/17 06/10/17 06/10/17 07:00 15:00 23:00 07:00 15:00 23:00 Intake Total 500 ml Balance 500 ml Intake IV Total 500 ml Result Diagram: 06/10/17 0257 06/10/17 0257 Imaging Last Impressions Head CT 06/09/17 1719 Signed Impressions: Service Date/Time: Friday, June 09, 2017 17:59 - CONCLUSION: Unremarkable study. Roxana Dodge MD Chest X-Ray 06/09/17 0000 Signed Impressions: Service Date/Time: Friday, June 09, 2017 18:21 - CONCLUSION: No acute cardiopulmonary disease. Roxana Dodge MD Objective Remarks GENERAL: in NAD CARDIOVASCULAR: Regular rate and rhythm without murmurs, gallops, or rubs. + Reproducible chest pain with palpation. RESPIRATORY: Breath sounds equal bilaterally. No accessory muscle use. GASTROINTESTINAL: Abdomen soft, non-tender, nondistended. MUSCULOSKELETAL: No cyanosis, or edema. BACK: Nontender without obvious deformity. No CVA tenderness. NEURO AAO X 3. Cn 2-12 intact. Sensation and strength grossly intact. Medications and IVs Current Medications Ondansetron HCl (Zofran Inj) 4 mg ONCE ONCE IVP ; Start 06/09/17 at 17:30; Stop 06/09/17 at 17:31; Status DC Sodium Chloride (NS Flush) 2 ml UNSCH PRN IVF FLUSH AFTER USING IV ACCESS; Start 06/09/17 at 17:30 Sodium Chloride 500 ml @ 500 mls/hr BOLUS ONCE IV Last administered on at 17:32; Start 06/09/17 at 17:30; Stop 06/09/17 at 18:29; Status DC Potassium Chloride (KCl) 20 meq ONCE ONCE PO Last administered on 06/09/17at 19: 10; Start 06/09/17 at 18:30; Stop 06/09/17 at 18:31; Status DC Sodium Chloride 1,000 ml @ 100 mls/hr Q10H IV Last administered on 06/10/17at 05 :32; Start 06/09/17 at 19:08 Sodium Chloride (NS Flush) 2 ml UNSCH PRN IV FLUSH FLUSH AFTER USING IV ACCESS ; Start 06/09/17 at 19:15 Sodium Chloride (NS Flush) 2 ml BID IV FLUSH ; Start 06/09/17 at 21:00 Ondansetron HCl (Zofran Inj) 4 mg Q6H PRN IVP NAUSEA OR VOMITING; Start at 19:15 Acetaminophen (Tylenol) 650 mg Q6H PRN PO FEVER/PAIN SCALE 1 TO 2; Start at 19:15 Acetaminophen/ Hydrocodone Bitart ([place] 5-325 Mg) 1 tab Q4H PRN PO PAIN SCALE 3 TO 5; Start 06/09/17 at 19:15 Morphine Sulfate (Morphine Inj) 2 mg Q3H PRN IV PUSH Pain 6-10; Start 06/09/17 at 19:15 Senna/Docusate Sodium (Shari-Colace) 1 tab BID PO ; Start 06/09/17 at 21:00 Magnesium Hydroxide (Milk Of Magnesia Liq) 30 ml Q12H PRN PO Mild constipation ; Start 06/09/17 at 19:15 Sennosides (Senokot) 17.2 mg Q12H PRN PO Moderate constipation; Start 06/09/17 at 19:15 Bisacodyl (Dulcolax Supp) 10 mg DAILY PRN RECTAL SEVERE CONSITIPATION; Start at 19:15 Lactulose (Lactulose Liq) 30 ml DAILY PRN PO SEVERE CONSITIPATION; Start at 19:15 Pravastatin Sodium (Pravachol) 40 mg DAILY PO ; Start 06/10/17 at 09:00 Methylprednisolone Sodium Succinate (SoluMEDROL INJ) 40 mg Q6HR IV PUSH Last administered on 06/10/17at 05:31; Start 06/10/17 at 00:00 Albuterol/ Ipratropium (Duoneb Neb) 1 ampule Q4HR NEB PRN NEB SOB/WHEEZING; Start 06/09/17 at 19:15 Budesonide/ Formoterol Fumarate (Symbicort 160-4.5 Mcg Inh) 2 puff Q12HR INH Last administered on 06/09/17at 21:00; Start 06/09/17 at 21:00 Aspirin (Aspirin Chew) 324 mg ONCE ONCE CHEW Last administered on 06/09/17at 19: 32; Start 06/09/17 at 19:30; Stop 06/09/17 at 19:31; Status DC Ondansetron HCl (Zofran Inj) 4 mg ONCE ONCE IV PUSH ; Start 06/09/17 at 19:30; Stop 06/09/17 at 19:31; Status DC Sodium Chloride 1,000 ml @ 999 mls/hr BOLUS ONCE IV Last administered on at 01:48; Start 06/10/17 at 01:45; Stop 06/10/17 at 02:45; Status DC A/P Problem List: (1) Syncope ICD Code: R55 - Syncope and collapse Status: Acute (2) Chest pain ICD Code: R07.9 - Chest pain, unspecified Status: Acute (3) COPD (chronic obstructive pulmonary disease) ICD Code: J44.9 - Chronic obstructive pulmonary disease, unspecified (4) Dehydration ICD Code: E86.0 - Dehydration (5) Hypokalemia ICD Code: E87.6 - Hypokalemia (6) Rhabdomyolysis ICD Code: M62.82 - Rhabdomyolysis (7) Tobacco abuse ICD Code: Z72.0 - Tobacco use Assessment and Plan This is a 62-year-old female presented with syncope Syncope: - need to rule out cardiac etiology.. CT Head w/ no acute findings. No events over telemetry. Pending echo. UA negative. Will get EEG. Chest pain -Most likely muscle or skeletal since chest pain occurred after the fall and is only occurs with movements. It is also reproducible with palpation of the chest. -Cardiac enzymes all negative. EKG reviewed and normal. Due to concerns for cardiac etiology will get a nuclear stress test. Pending echo. COPD: -Patient was treated as exacerbation. She is asymptomatic and lungs are clear on examination. -We'll transition her to oral medication. Tobacco Abuse: Pt counselled. Ativan prn if needed. No NicoDerm to avoid vasoconstriction. Vidya Gandara MD Jun 10, 2017 09:47
[2017-06-10] MEDS: PRAVASTATIN SOD 40 MG TAB PO SCH (10:56)
[2017-06-10] MEDS: SODIUM CHLORIDE 0.9% FLUSH 10 ML FLUSH IV FLUSH SCH ×2 (10:56→20:47)
[2017-06-10] MEDS: DOCUSATE SODIUM 50 MG/SENNA 8.6 MG TAB PO SCH ×2 (10:56→20:47)
--- NOTE | 2017-06-10 14:23 | MG ---
cc: GENNY VIEYRA MD, DALIA M.D. Lab No: [id number] Date: 06/10/2017 : 1955 Age: 62 Sex: F Room F63. Awake, drowsy, asleep with photic stimulation. CT negative. HISTORY A 61-year-old woman admitted feeling lightheaded with syncope, on Solu-Medrol and aspirin, history of COPD, asthma, syncope in the past. DESCRIPTION OF RECORD She has an alpha rhythm of 8 to 8.5 Hz, 20-40 microvolts, symmetrical background. On EKG it is difficult to tell if there is a P-wave but does not look overall like an arrhythmia. There is some myogenic artifact but no epileptic activity. Some mild attenuation with somnolence, drowsiness. The patient falls asleep, increased attenuation. Photic stimulation does elicit a normal posterior driving response. IMPRESSION Overall normal-appearing EEG. There is no evidence of any epileptiform features in his one recording. Clinical correlation. Dian Lynn MD DF/JAYLA /2:03 PM /2:15 PM
[2017-06-10] MEDS: BUDESONIDE-FORMOTEROL 160/4.5 MCG INHALER INH SCH ×2 (16:34→20:48)
--- NOTE | 2017-06-10 17:05 | ECHRPT ---
Indication: Cardiomyopathy CONCLUSIONS The left ventricular systolic function is normal with an estimated ejection fraction in the range of 55-60%. Normal left ventricular size. Wall thickness is normal. There is trace tricuspid valve regurgitation. The estimated pulmonary arterial pressure is 27.3 mmHg. BP: 84 / 51 HR: 72 Rhythm: Sinus MEASUREMENTS (Male / Female) Normal Values Technical Quality:Good 2D ECHO LV Diastolic Diameter PLAX 3.4 cm 4.2 - 5.9 / 3.9 - 5.3 cm LV Systolic Diameter PLAX 2.5 cm IVS Diastolic Thickness 1.0 cm 0.6 - 1.0 / 0.6 - 0.9 cm LVPW Diastolic Thickness 1.0 cm 0.6 - 1.0 / 0.6 - 0.9 cm LV Relative Wall Thickness 0.6 LVOT Diameter 1.9 cm LA Systolic Diameter LX 2.7 cm 3.0 - 4.0 / 2.7 - 3.8 cm LV Ejection Fraction MOD 4C 57.4 % LV Cardiac Index MOD 4C 1448.4 cm/minm LV Ejection Fraction 4C AL 59.3 % LV Cardiac Index 4C AL 1528.2 cm/minm M-MODE Aortic Root Diameter MM 3.0 cm AV Cusp Separation MM 1.8 cm DOPPLER AV Peak Velocity 133.0 cm/s AV Peak Gradient 7.1 mmHg LVOT Peak Velocity 103.0 cm/s LVOT Peak Gradient 4.2 mmHg AV Area Cont Eq pk 2.2 cm MV Area PHT 3.0 cm Mitral E Point Velocity 85.4 cm/s Mitral A Point Velocity 84.4 cm/s Mitral E to A Ratio 1.0 TR Peak Velocity 208.0 cm/s TR Peak Gradient 17.3 mmHg Right Atrial Pressure 10.0 mmHg Pulmonary Artery Systolic Pressu 27.3 mmHg Right Ventricular Systolic Press 27.3 mmHg PV Peak Velocity 89.6 cm/s PV Peak Gradient 3.2 mmHg FINDINGS LEFT VENTRICLE The left ventricular systolic function is normal with an estimated ejection fraction in the range of 55-60%. Normal left ventricular size. Wall thickness is normal. RIGHT VENTRICLE Normal right ventricular size and systolic function. LEFT ATRIUM The left atrial size is normal. RIGHT ATRIUM The right atrial size is normal. ATRIAL SEPTUM Normal atrial septal thickness without atrial level shunting by limited color doppler interrogation. AORTA The aortic root and proximal ascending aorta are normal in size on limited imaging. MITRAL VALVE Structurally normal mitral valve. No mitral valve stenosis or regurgitation. AORTIC VALVE Trileaflet aortic valve. No aortic valve stenosis or regurgitation. TRICUSPID VALVE Structurally normal tricuspid valve. There is trace tricuspid valve regurgitation. The estimated pulmonary arterial pressure is 27.3 mmHg. PULMONARY VALVE No pulmonary valve regurgitation or stenosis. VESSELS The inferior vena cava is normal in size. PERICARDIUM No pericardial effusion. Isidro Elizabeth MD, FACC (Electronically Signed) Final Date:10 June 2017 17:04
--- NOTE | 2017-06-10 22:13 | EKG ---
Date Performed: 06/09/2017 Time Performed: 17:24:04 PTAGE: 62 years EKG: Sinus rhythm NORMAL ECG NO PREVIOUS TRACING DOCTOR: Abad Jimenez Interpretating Date/Time 06/10/2017 22:04:31
[2017-06-11 00:02] VITALS: PULSE 60
[2017-06-11] MEDS: SODIUM CHLOR 0.9% 1000 ML INJ 1,000 ML IV SCH ×2 (01:19→11:08)
[2017-06-11 04:27] VITALS: BP 96/57; PULSE 60; RESP 18; TEMP 98.1; O2SAT 97
[2017-06-11 06:54] LABS: HEMATOCRIT 33.6 % (35.0-46.0); HEMOGLOBIN 11.4 GM/DL (11.6-15.3); MEAN CELL VOLUME 95.4 FL (80.0-100.0); MEAN CORPUSCULAR HEMOGLOBIN 32.4 PG (27.0-34.0); MEAN CORPUSCULAR HGB CONC 33.9 % (32.0-36.0); MEAN PLATELET VOLUME 9.8 FL (7.0-11.0); PLATELET COUNT 146 TH/MM3 (150-450); RED BLOOD COUNT 3.53 MIL/MM3 (4.00-5.30); RED CELL DISTRIBUTION WIDTH 13.1 % (11.6-17.2)
[2017-06-11 07:08] LABS: BICARBONATE 21.7 MEQ/L (21.0-32.0); CALCIUM 7.8 MG/DL (8.5-10.1); CREATININE 0.62 MG/DL (0.50-1.00)
[2017-06-11 07:11] VITALS: BP 121/65; PULSE 54; RESP 18; TEMP 98.1; O2SAT 100
[2017-06-11 08:00] VITALS: PULSE 74
[2017-06-11] MEDS ORDERED: predniSONE 50 MG TAB PO SCH (09:00)
[2017-06-11] MEDS ORDERED: REGADENOSON INJ 0.4 MG/5 ML SYR ONE (09:03)
--- NOTE | 2017-06-11 10:17 | RADRPT ---
EXAM DATE/TIME: 06/10/2017 11:44 [facility] COMPARISON: No previous studies available for comparison. INDICATIONS : Syncope with dyspnea. Angina. DOSE: 30 mCi Tc99m Myoview at stress. 30 mCi Tc99m Myoview at rest. 0.4 mg Lexiscan STRESS SYMPTOMS: Dyspnea and chest pain. EJECTION FRACTION: 69% MEDICAL HISTORY : Chronic obstructive pulmonary disease. SURGICAL HISTORY : Appendectomy. Tonsillectomy. ENCOUNTER: Initial ACUITY: 1 day PAIN SCALE: 1/10 LOCATION: Substernal chest TECHNIQUE: The patient underwent pharmacologic stress with infusion of prescribed dose. Continuous ECG tracing was monitored during stress. Gated SPECT imaging was performed after stress and conventional SPECT i maging was performed at rest. The examination was performed on a SPECT/CT scanner, both attenuation and non-corrected datasets were reviewed. FINDINGS: DISTRIBUTION: The maximum perfused segment at stress is in the lateral wall. PERFUSION STUDY: The pattern of perfusion at stress is within normal limits. GATED STUDY: There is intact wall motion and thickening without hypokinetic or dyskinetic segments. CONCLUSION: Normal examination. RISK CATEGORY: Low (<1% Annual Mortality Rate) Yaron Reeder MD on June 11, 2017 at 10:11 Board Certified Radiologist. This report was verified electronically.
[2017-06-11] MEDS: GABAPENTIN 100 MG CAP PO SCH ×2 (10:45→13:00)
--- NOTE | 2017-06-11 10:47 | HHI.PR ---
Subjective Remarks Follow-up for syncope Patient denies any syncopal episode while hospitalized. She also denied any chest pain, shortness of breathing, palpitation, lightheadedness dizziness. Patient stated that she feels like she drinks enough water. She does state that she does not eat a lot of salt her diet. Patient complaining of right lower extremity numbness of her leg from knee down. She stated that this happened after the fall. Denies any pain. Patient stated that she was told that she had nerve pain. When I question her again about this and stated that I thought the pain was new she didn't say that it was her left leg. Denies any claudications. Otherwise cardiac telemetry reviewed and some episodes of bradycardia the patient asymptomatic. Objective Vitals Vital Signs Date Time Temp Pulse Resp B/P (MAP) Pulse Ox O2 Delivery O2 Flow Rate FiO2 06/11/17 07:11 98.1 54 18 121/65 (83) 100 06/11/17 04:27 98.1 60 18 96/57 (70) 97 06/11/17 00:02 60 06/10/17 23:43 98.4 68 18 97/61 (73) 97 06/10/17 20:40 98.0 56 16 95/56 (69) 95 06/10/17 20:01 75 06/10/17 19:00 111/65 (80) 06/10/17 16:14 98.9 73 20 87/50 (62) 97 06/10/17 12:19 97.7 72 18 112/56 (74) 96 I/O 06/10/17 06/10/17 06/10/17 06/11/17 06/11/17 06/11/17 07:00 15:00 23:00 07:00 15:00 23:00 Intake Total 480 ml Balance 480 ml Intake Oral 480 ml Result Diagram: 06/11/17 0540 06/11/17 0540 Objective Remarks GENERAL: in NAD CARDIOVASCULAR: Regular rate and rhythm without murmurs, gallops, or rubs. + Reproducible chest pain with palpation. RESPIRATORY: Breath sounds equal bilaterally. No accessory muscle use. GASTROINTESTINAL: Abdomen soft, non-tender, nondistended. MUSCULOSKELETAL: No cyanosis, or edema. BACK: Nontender without obvious deformity. No CVA tenderness. NEURO AAO X 3. Cn 2-12 intact. Right lower extremity no swelling or erythema noted. The lower extremity per patient with touch feels numb. DP pulses +2. Medications and IVs Current Medications Ondansetron HCl (Zofran Inj) 4 mg ONCE ONCE IVP ; Start 06/09/17 at 17:30; Stop 06/09/17 at 17:31; Status DC Sodium Chloride (NS Flush) 2 ml UNSCH PRN IVF FLUSH AFTER USING IV ACCESS; Start 06/09/17 at 17:30 Sodium Chloride 500 ml @ 500 mls/hr BOLUS ONCE IV Last administered on at 17:32; Start 06/09/17 at 17:30; Stop 06/09/17 at 18:29; Status DC Potassium Chloride (KCl) 20 meq ONCE ONCE PO Last administered on 06/09/17at 19: 10; Start 06/09/17 at 18:30; Stop 06/09/17 at 18:31; Status DC Sodium Chloride 1,000 ml @ 100 mls/hr Q10H IV Last administered on 06/11/17at 01 :19; Start 06/09/17 at 19:08 Sodium Chloride (NS Flush) 2 ml UNSCH PRN IV FLUSH FLUSH AFTER USING IV ACCESS ; Start 06/09/17 at 19:15 Sodium Chloride (NS Flush) 2 ml BID IV FLUSH Last administered on 06/11/17at 10: 48; Start 06/09/17 at 21:00 Ondansetron HCl (Zofran Inj) 4 mg Q6H PRN IVP NAUSEA OR VOMITING; Start at 19:15 Acetaminophen (Tylenol) 650 mg Q6H PRN PO FEVER/PAIN SCALE 1 TO 2; Start at 19:15 Acetaminophen/ Hydrocodone Bitart ([place] 5-325 Mg) 1 tab Q4H PRN PO PAIN SCALE 3 TO 5; Start 06/09/17 at 19:15 Morphine Sulfate (Morphine Inj) 2 mg Q3H PRN IV PUSH Pain 6-10; Start 06/09/17 at 19:15 Senna/Docusate Sodium (Shari-Colace) 1 tab BID PO Last administered on 06/11/17at 10:48; Start 06/09/17 at 21:00 Magnesium Hydroxide (Milk Of Magnesia Liq) 30 ml Q12H PRN PO Mild constipation ; Start 06/09/17 at 19:15 Sennosides (Senokot) 17.2 mg Q12H PRN PO Moderate constipation; Start 06/09/17 at 19:15 Bisacodyl (Dulcolax Supp) 10 mg DAILY PRN RECTAL SEVERE CONSITIPATION; Start at 19:15 Lactulose (Lactulose Liq) 30 ml DAILY PRN PO SEVERE CONSITIPATION; Start at 19:15 Pravastatin Sodium (Pravachol) 40 mg DAILY PO Last administered on 06/11/17at 10: 48; Start 06/10/17 at 09:00 Methylprednisolone Sodium Succinate (SoluMEDROL INJ) 40 mg Q6HR IV PUSH Last administered on 06/10/17at 05:31; Start 06/10/17 at 00:00; Stop 06/10/17 at 09:54; Status DC Albuterol/ Ipratropium (Duoneb Neb) 1 ampule Q4HR NEB PRN NEB SOB/WHEEZING; Start 06/09/17 at 19:15 Budesonide/ Formoterol Fumarate (Symbicort 160-4.5 Mcg Inh) 2 puff Q12HR INH Last administered on 06/11/17at 10:49; Start 06/09/17 at 21:00 Aspirin (Aspirin Chew) 324 mg ONCE ONCE CHEW Last administered on 06/09/17at 19: 32; Start 06/09/17 at 19:30; Stop 06/09/17 at 19:31; Status DC Ondansetron HCl (Zofran Inj) 4 mg ONCE ONCE IV PUSH ; Start 06/09/17 at 19:30; Stop 06/09/17 at 19:31; Status DC Sodium Chloride 1,000 ml @ 999 mls/hr BOLUS ONCE IV Last administered on at 01:48; Start 06/10/17 at 01:45; Stop 06/10/17 at 02:45; Status DC Prednisone (Deltasone) 50 mg DAILY PO Last administered on 06/11/17at 10:48; Start 06/11/17 at 09:00 Sodium Chloride 1,000 ml @ 999 mls/hr BOLUS ONCE IV Last administered on at 18:54; Start 06/10/17 at 18:15; Stop 06/10/17 at 19:15; Status DC Regadenoson (Lexiscan Inj) 0.4 mg STK-MED ONCE .ROUTE Last administered on at 09:03; Start 06/11/17 at 09:03; Stop 06/11/17 at 09:04; Status DC Gabapentin (Neurontin) 100 mg TID PO ; Start 06/11/17 at 10:45 A/P Problem List: (1) Syncope ICD Code: R55 - Syncope and collapse Status: Acute (2) Chest pain ICD Code: R07.9 - Chest pain, unspecified Status: Acute (3) COPD (chronic obstructive pulmonary disease) ICD Code: J44.9 - Chronic obstructive pulmonary disease, unspecified (4) Dehydration ICD Code: E86.0 - Dehydration (5) Hypokalemia ICD Code: E87.6 - Hypokalemia (6) Rhabdomyolysis ICD Code: M62.82 - Rhabdomyolysis (7) Tobacco abuse ICD Code: Z72.0 - Tobacco use Assessment and Plan This is a 62-year-old female presented with syncope Syncope: - need to rule out cardiac etiology.. CT Head w/ no acute findings. No events over telemetry. Echo reviewed relatively normal. EEG negative. Telemetry shows some episodes bradycardia but patient asymptomatic. She does become intermittently hypertensive during her hospital course. Per patient this is her baseline. Encourage oral intake. Patient also can add salt to her diet. Hypotension -Due to decreased oral intake and low-salt diet. Patient encouraged to take oral intake and may add salt to diet. -Resolved with IV fluids. Peripheral neuropathy -Per patient this is new. Sounds chronic. She did a stated that she was told by her primary provider that she had neuropathy. -Will get x-ray of her lower extremity although clinical exam normal. -Will try Neurontin. Chest pain -Most likely muscle or skeletal since chest pain occurred after the fall and is only occurs with movements. It is also reproducible with palpation of the chest. Resolved. -Cardiac enzymes all negative. EKG reviewed and normal. Echo reviewed and nothing significant that cause syncope. Nuclear stress test also negative. COPD: -Patient was treated as exacerbation. She is asymptomatic and lungs are clear on examination. -Continue or medication. Tobacco Abuse: Pt counselled. Ativan prn if needed. No NicoDerm to avoid vasoconstriction. Discharge Planning PT recommended a front wheeled rolling walker. In terms of ambulation this is improving. Will have patient walk again later today. If she does well on her own she can be discharged to home. Vidya Gandara MD Jun 11, 2017 10:47
[2017-06-11] MEDS: DOCUSATE SODIUM 50 MG/SENNA 8.6 MG TAB PO SCH (10:48)
[2017-06-11] MEDS: PRAVASTATIN SOD 40 MG TAB PO SCH (10:48)
[2017-06-11] MEDS: SODIUM CHLORIDE 0.9% FLUSH 10 ML FLUSH IV FLUSH SCH (10:48)
[2017-06-11] MEDS: BUDESONIDE-FORMOTEROL 160/4.5 MCG INHALER INH SCH (10:49)
[2017-06-11] MEDS ORDERED: WALKER WHEELS/F1 MIS (11:08)
[2017-06-11] MEDS ORDERED: GABA100C4 PO (11:17)
[2017-06-11] MEDS ORDERED: PRED50 PO (11:17)
[2017-06-11] MEDS ORDERED: ALBUAER3 INH (11:17)
--- NOTE | 2017-06-11 11:24 | HHI.DCPOC ---
Discharge Care Plan Diagnosis: (1) Physical deconditioning (2) Neuropathy (3) Syncope (4) Chest pain (5) Dehydration Goals to Promote Your Health * To prevent worsening of your condition and complications * To maintain your health at the optimal level Directions to Meet Your Goals Take your medications as prescribed Follow your dietary instruction Follow activity as directed Keep your appointments as scheduled Take your immunizations and boosters as scheduled If your symptoms worsen call your PCP, if no PCP go to Urgent Care Center or Emergency Room Smoking is Dangerous to Your Health. Avoid second hand smoke Call the 24-hour hour crisis hotline for domestic abuse at Vidya Gandara MD Jun 11, 2017 11:24
[2017-06-11 12:24] VITALS: BP 111/59; PULSE 84; RESP 18; TEMP 98.6; O2SAT 99
--- NOTE | 2017-06-11 12:59 | RADRPT ---
EXAM DATE/TIME: 06/11/2017 12:45 [facility] COMPARISON: No previous studies available for comparison. INDICATIONS : Fall two days ago. Numbness from knee to foot on right side. MEDICAL HISTORY : Cardiovascular disease. Cerebrovascular disease. SURGICAL HISTORY : Tonsillectomy. Appendectomy. ENCOUNTER: Subsequent ACUITY: 2 days PAIN SCORE: 1/10 LOCATION: Right Ankle FINDINGS: Three view exam was performed of the right ankle. The bony structures are in normal alignment. No e vidence of fracture, dislocation, or soft tissue swelling. The ankle mortise is intact. No radiopaq ue foreign bodies are seen. Bony mineralization is diffusely decreased. CONCLUSION: No evidence of recent bony injury. Ambrose Bautista MD on June 11, 2017 at 12:56 Board Certified Radiologist. This report was verified electronically.
--- NOTE | 2017-06-11 13:01 | RADRPT ---
EXAM DATE/TIME: 06/11/2017 12:47 [facility] COMPARISON: No previous studies available for comparison. INDICATIONS : Fall two days ago. Numbness from knee to foot on right side. MEDICAL HISTORY : Cerebrovascular disease. Cardiovascular disease. SURGICAL HISTORY : Appendectomy. Tonsillectomy. ENCOUNTER: Subsequent ACUITY: 2 days PAIN SCORE: 1/10 LOCATION: Right Knee FINDINGS: Four view examination of the right knee demonstrates no evidence of fracture or dislocation. Bony mi neralization is diffusely decreased with multiple horizontal thin areas of sclerosis in the lingula o f the distal femur and proximal tibia.. The articular surfaces are intact. The suprapatellar soft t issues have a normal configuration. CONCLUSION: No evidence of recent bone injury. Diffuse osteopenia. Ambrose Bautista MD on June 11, 2017 at 12:57 Board Certified Radiologist. This report was verified electronically.
--- NOTE | 2017-06-11 14:14 | HHI.DS ---
Discharge Summary Admission Date Jun 09, 2017 at 19:10 Discharge Date: Jun 11, 2017 Admitting Diagnosis syncope, chest pain (1) Syncope ICD Code: R55 - Syncope and collapse Diagnosis: Principal Status: Acute (2) Chest pain ICD Code: R07.9 - Chest pain, unspecified Diagnosis: Principal Status: Acute (3) COPD (chronic obstructive pulmonary disease) ICD Code: J44.9 - Chronic obstructive pulmonary disease, unspecified Diagnosis: Secondary (4) Dehydration ICD Code: E86.0 - Dehydration Diagnosis: Principal (5) Hypokalemia ICD Code: E87.6 - Hypokalemia Diagnosis: Secondary (6) Rhabdomyolysis ICD Code: M62.82 - Rhabdomyolysis Diagnosis: Principal (7) Tobacco abuse ICD Code: Z72.0 - Tobacco use Diagnosis: Secondary (8) Hypotension ICD Code: I95.9 - Hypotension, unspecified Diagnosis: Principal (9) Neuropathy ICD Code: G62.9 - Polyneuropathy, unspecified Diagnosis: Secondary Procedures See hospital course. Brief History - From Admission This is a 62-year-old female with a PMH of COPD and Tobacco Abuse was brought to the ER by EMS secondary to syncopal event. Per patient, she had gone outside to smoke a cigarette, when she walked back into the house she had episode of dizzinees/lightheadedness w/ nausea/vomiting followed by syncopal event. Reports no head trauma. Believes episode lasted approx 1-2 min. Denies h/o similar symptoms. En route to ER, pt w/ c/o chest pain. States pain is substernal, worse w/ inspiration, severe, 8/10, associated w/ SOB and wheezing. Recent ER visit 06/03/17 for COPD, d/c'd home w/ Prednisone and Albuterol however states she has not filled prescriptions yet. Denies fever or chills. Reports productive cough w/ white-colored sputum. On arrival, BP 110/ 65, HR 80, O2 sat 99% on RA, Afebrile. CBC essentially unremarkable. K+ 3.4. GFR 68. CPK 270. Troponin negative. CXR with no acute findings. CT Head negative. CBC/BMP: 06/11/17 0540 06/11/17 0540 Significant Findings Laboratory Tests Test 06/09/17 17:25 06/10/17 02:17 06/10/17 02:57 06/11/17 05:40 Red Blood Count 3.74 MIL/MM3 (4.00-5.30) 3.83 MIL/MM3 (4.00-5.30) 3.53 MIL/MM3 (4.00-5.30) Hematocrit 34.6 % (35.0-46.0) 33.6 % (35.0-46.0) Monocytes (%) (Auto) 9.1 % (0.0-8.0) Random Glucose 133 MG/DL (74-106) Calcium Level 7.9 MG/DL (8.5-10.1) 7.6 MG/DL (8.5-10.1) 7.8 MG/DL (8.5-10.1) Potassium Level 3.4 MEQ/L (3.5-5.1) Estimat Glomerular Filtration Rate 68 ML/MIN (>89) 75 ML/MIN (>89) Total Creatine Kinase 270 U/L (26-192) 204 U/L (26-192) Troponin I LESS THAN 0.02 NG/ML LESS THAN 0.02 NG/ML LESS THAN 0.02 NG/ML Neutrophils (%) (Auto) 75.7 % (16.0-70.0) Total Protein 5.7 GM/DL (6.4-8.2) Albumin 2.9 GM/DL (3.4-5.0) Chloride Level 108 MEQ/L (98-107) 112 MEQ/L (98-107) Hemoglobin 11.4 GM/DL (11.6-15.3) Platelet Count 146 TH/MM3 (150-450) Imaging Last Impressions Knee X-Ray 06/11/17 0000 Signed Impressions: Service Date/Time: Sunday, June 11, 2017 12:47 - CONCLUSION: No evidence of recent bone injury. Diffuse osteopenia. Ambrose Bautista MD Ankle X-Ray 06/11/17 0000 Signed Impressions: Service Date/Time: Sunday, June 11, 2017 12:45 - CONCLUSION: No evidence of recent bony injury. Ambrose Bautista MD Myocardial Perfusion Scan Nuc Med 06/10/17 0000 Signed Impressions: Service Date/Time: Saturday, June 10, 2017 11:44 - CONCLUSION: Normal examination. RISK CATEGORY: Low (<1%% Annual Mortality Rate) Yaron Reeder MD Head CT 06/09/17 1719 Signed Impressions: Service Date/Time: Friday, June 09, 2017 17:59 - CONCLUSION: Unremarkable study. Roxana Dodge MD Chest X-Ray 06/09/17 0000 Signed Impressions: Service Date/Time: Friday, June 09, 2017 18:21 - CONCLUSION: No acute cardiopulmonary disease. Roxana Dodge MD PE at Discharge GENERAL: in NAD CARDIOVASCULAR: Regular rate and rhythm without murmurs, gallops, or rubs. + Reproducible chest pain with palpation that has improved drastically. RESPIRATORY: Breath sounds equal bilaterally. No accessory muscle use. GASTROINTESTINAL: Abdomen soft, non-tender, nondistended. MUSCULOSKELETAL: No cyanosis, or edema. BACK: Nontender without obvious deformity. No CVA tenderness. NEURO AAO X 3. Cn 2-12 intact. Right lower extremity no swelling or erythema noted. The lower extremity per patient with touch feels numb. DP pulses +2. Pt update on day of discharge Patient seen again today and she stated that she walks very well with a walker. She is very anxious to go home today. I had the nurse walk patient again in the hallway and she was able to walk on her own with a walker with no difficulties. She states she felt very comfortable with the walker. Hospital Course This is a 62-year-old female presented with syncope Syncope: - need to rule out cardiac etiology.. CT Head w/ no acute findings. No events over telemetry. Echo reviewed relatively normal. EEG negative. Telemetry shows some episodes bradycardia but patient asymptomatic. She does become intermittently hypertensive during her hospital course. Per patient this is her baseline. Encourage oral intake. Patient also can add salt to her diet. Hypotension -Due to decreased oral intake and low-salt diet. Patient encouraged to take oral intake and may add salt to diet. -Resolved with IV fluids. Peripheral neuropathy -Per patient this is new. Sounds chronic. She did a stated that she was told by her primary provider that she had neuropathy. -X-rays of the right knee and ankle negative. Examination is also negative. Patient was put on Neurontin. Patient told she would need to see a neurologist as an outpatient for a EMG. Most likely this is chronic. Chest pain -Most likely muscle or skeletal since chest pain occurred after the fall and is only occurs with movements. It is also reproducible with palpation of the chest. Resolved. -Cardiac enzymes all negative. EKG reviewed and normal. Echo reviewed and nothing significant that cause syncope. Nuclear stress test also negative. COPD: -Patient was treated as exacerbation. She is asymptomatic and lungs are clear on examination. -Continue or medication. Tobacco Abuse: Pt counselled. Ativan prn if needed. No NicoDerm to avoid vasoconstriction. Pt Condition on Discharge: Good Discharge Disposition: Discharge Home Discharge Time: > 30 minutes Discharge Instructions DIET: Follow Instructions for: As Tolerated, No Restrictions Additional Diet Instructions: You may add salt to your diet since your blood pressure runs low. Activities you can perform: Regular-No Restrictions Follow up Referrals: Neurology - 2 Weeks PCP Follow-up - 1 Week New Medications: Walker with Front Wheels (Walker with Front Wheels) 1 Mis Mis EA .XX DIRECTED, #1 0 Refills Gabapentin (Gabapentin) 100 Mg Cap 100 MG PO TID for neuropathy, #90 CAP 0 Refills Prednisone (Prednisone) 50 Mg Tab 50 MG PO DAILY for COPD, #4 TAB 0 Refills Continued Medications: Albuterol 8.5 GM Inh (Proair Hfa 8.5 GM Inh) 90 Mcg/Act Aer 1 PUFF INH Q4H PRN for SHORTNESS OF BREATH, #1 INHALER 1 Refill (This prescription has been renewed) 108 mcg/actuation Discontinued Medications: Prednisone (Prednisone) 20 Mg Tab 60 MG PO DAILY for 5 Days, #15 TAB 0 Refills Vidya Gandara MD Jun 11, 2017 14:14
== END 2017-06-11 16:52 | disposition home or self-care (01) ==
LOC: NEPC 16:59 → NEDA 19:10 → NEPFCDU 20:39
PROVIDERS: ADMIT Family Medicine; ATTEND Family Medicine
DX: J44.1 Chronic obstructive pulmonary disease with (acute) exacerbation (principal); R55 Syncope and collapse; E86.0 Dehydration; J45.909 Unspecified asthma, uncomplicated; F17.210 Nicotine dependence, cigarettes, uncomplicated; E87.6 Hypokalemia; M62.82 Rhabdomyolysis; I95.9 Hypotension, unspecified; G62.9 Polyneuropathy, unspecified; R06.00 Dyspnea, unspecified; Z86.73 Personal history of transient ischemic attack (TIA), and cerebral infarction without residual deficits; Z79.899 Other long term (current) drug therapy
CPT/HCPCS: 70450; 71045; 73564; 73610; 78452; 80048; 80053; 80061; 82550; 82552; 83735; 84484; 85025; 85027; 93005; 93017; 93306; 95819; 96361; 96374; 96376; 97110; 97116; 97161; 97162; 99285; A9502; G0378; G8987; G8988; J2785; J2920; J7030; J7040; J7512